=== PATIENT | male | born 1940 | race Caucasian/White ===

== ENCOUNTER → 2016-07-16 | Outpatient (CLI) | payer MEDICARE, OTHER ==
[~2016-07-16] MED LIST: ASPI1TAB69 PO; ASPI81 PO; ASPI81CH CHEW; CALC12502 PO; CIPR-9 PO; CO Q100C9; CYCL1TAB29 PO; ERYT.5%O OD; HYDR-3533 PO; HYDR10TA16 PO; MULT-65 PO; NAPR500T PO; OMEGCAP PO; PRED20 PO; TAB-TAB PO; TAMS5CAP PO; VIAG50TA PO; ZANT150T2 PO; ZOFR4TAB PO; ZOFR4TAB3 SL; ZOVI800T13 PO
[2016-07-16 12:51] LABS: APTT (PATIENT) 27.2 SEC (24.3-30.1); INTERNATIONAL NORMALIZED RATIO 0.9 RATIO; PROTHROMBIN TIME - PATIENT 9.7 SEC (9.8-11.6)
[2016-07-16 12:52] LABS: AUTOMATED NEUTROPHIL # 3.7 TH/MM3 (1.8-7.7); BASOPHIL % 0.6 % (0.0-2.0); EOSINOPHIL # 0.3 TH/MM3 (0-0.4); EOSINOPHIL % 6.3 % (0.0-4.0); HEMATOCRIT 42.3 % (39.0-51.0); HEMO FLAGS DIFF FINAL; LYMPH % 11.6 % (9.0-44.0); LYMPHOCYTE # 0.6 TH/MM3 (1.0-4.8); MEAN CELL VOLUME 92.3 FL (80.0-100.0); MEAN CORPUSCULAR HEMOGLOBIN 31.9 PG (27.0-34.0); MEAN CORPUSCULAR HGB CONC 34.5 % (32.0-36.0); MONO % 11.2 % (0.0-8.0); NEUT % 70.3 % (16.0-70.0); PLATELET COUNT 216 TH/MM3 (150-450); RED BLOOD COUNT 4.58 MIL/MM3 (4.50-5.90); RED CELL DISTRIBUTION WIDTH 13.1 % (11.6-17.2); WHITE BLOOD COUNT 5.2 TH/MM3 (4.0-11.0)
[2016-07-16 13:01] LABS: BACTERIA, URINE MOD /hpf; BLOOD, URINE NEG (NEG); COMMENT (UR) CULTURE INDICATED; CULTURE IF INDICATED CULTURE INDICATED; GLUCOSE,URINE NEG (NEG); KETONE, URINE NEG (NEG); MUCUS URINE FEW /lpf (OCC); NITRITE,URINE NEG (NEG); SQUAMOUS EPITHELIAL CELL URINE <1 /hpf (0-5); URINE COLOR YELLOW (YELLW/STRAW)
[2016-07-16 13:08] LABS: ALKALINE PHOSPHATASE 94 U/L (45-117); ALT (GPT) 19 U/L (12-78); ANION GAP 8 MEQ/L (5-15); AST (GOT) 13 U/L (15-37); BLOOD UREA NITROGEN 21 MG/DL (7-18); CHLORIDE 102 MEQ/L (98-107); GLOMERULAR FILTRATION RATE 77 ML/MIN (>89); GLUCOSE,FASTING 95 MG/DL (74-99); POTASSIUM 4.2 MEQ/L (3.5-5.1); SODIUM (NA) 140 MEQ/L (136-145); TOTAL BILIRUBIN ADULT 0.4 MG/DL (0.2-1.0)
--- NOTE | 2016-07-16 13:15 | RADRPT ---
EXAM DATE/TIME: 07/16/2016 12:22 [facility] COMPARISON: No previous studies available for comparison. INDICATIONS : Evaluate for pneumonia, pneumothora and communicable diseases. Pre-op back surgery MEDICAL HISTORY : None. SURGICAL HISTORY : None. ENCOUNTER: Initial ACUITY: 1 day PAIN SCORE: 0/10 LOCATION: chest FINDINGS: PA and lateral views of the chest demonstrate the lungs to be symmetrically aerated without evidence of mass, infiltrate or effusion. The cardiomediastinal contours are unremarkable. Osseous structure s are intact. CONCLUSION: No acute disease. Thad Miranda MD on July 16, 2016 at 13:14 Board Certified Radiologist. This report was verified electronically.
--- NOTE | 2016-07-17 23:41 | EKG ---
Date Performed: 07/16/2016 Time Performed: 11:42:04 PTAGE: 75 years EKG: Sinus rhythm PATTERN CONSISTENT WITH PULMONARY DISEASE LEFT ANTERIOR FASCICULAR BLOCK ABNORMAL ECG NO PREVIOUS TRACING DOCTOR: Martha Tate Interpretating Date/Time 07/17/2016 23:38:58
== END ==
LOC: CPRE 11:17
PROVIDERS: ATTEND Neurological Surgery
DX: Z01.812 Encounter for preprocedural laboratory examination (principal); Z79.01 Long term (current) use of anticoagulants; Z01.810 Encounter for preprocedural cardiovascular examination; Z01.811 Encounter for preprocedural respiratory examination; S32.000A Wedge compression fracture of unspecified lumbar vertebra, initial encounter for closed fracture; I44.4 Left anterior fascicular block; N39.0 Urinary tract infection, site not specified; B96.1 Klebsiella pneumoniae [K. pneumoniae] as the cause of diseases classified elsewhere; R94.31 Abnormal electrocardiogram [ECG] [EKG]
CPT/HCPCS: 36415; 71020; 80053; 81001; 85025; 85610; 85730; 87077; 87086; 87186; 93005

== ENCOUNTER → 2016-07-20 | Day surgery (SDC) | payer MEDICARE, OTHER ==
[~2016-07-20] VITALS: Ht 177.8 cm; Wt 85.0 kg
[~2016-07-20] MED LIST changes: -ASPI81 PO; +BUPIVACAINE/EPINEPHRINE 0.5% PF 30 ML VIAL ONE; -CO Q100C9; +DO NOT ADM ANY ANTICOAGULANT DRUGS XX PRN; -ERYT.5%O OD; -HYDR10TA16 PO; +INSULIN HUMAN REGULAR 1,000 UNITS/10 ML VIAL SQ PRN; +IOHEXOL 350 MG/ML 50 ML BTL (for RAD DIAG) ONE; +LACTATED RINGER'S 1000 ML IV SCH; +METOPROLOL TARTRATE 25 MG TAB PO PRN; +MIDAZOLAM HCL 2 MG/2 ML VIAL ONE; +NEOSTIGMINE 3 MG/3 ML SYR IV ONE; +ONDANSETRON HCL 4 MG/2 ML VIAL IV PUSH ONE; -PRED20 PO; +PROPOFOL 200 MG/20 ML AMP IV ONE; +SODIUM CHLOR 0.9% 1000 ML INJ 1,000 ML IV SCH; +SODIUM CHLORID 0.9% 500 ML IV SCH; -TAB-TAB PO; +VANCOMYCIN HCL 1000 MG ON-CALL/NS 250 ML IV SCH; -ZOVI800T13 PO
[2016-07-20 07:08] VITALS: BP 142/82; PULSE 85; RESP 16; TEMP 98; O2SAT 99
--- NOTE | 2016-07-20 09:31 | PD.OP ---
cc: Raudel Parsons MD Operative Report Date of Surgery: Jul 20, 2016 Preoperative Diagnosis: Intractable low back pain with L5 vertebral body compression fracture Postoperative Diagnosis: Same Procedure: Lumbar L5 kyphoplasty Anesthesia: Gen. endotracheal by Treva Martin Surgeon: Sundar Dobson M.D. Quarryman(s): None Operation and Findings: Following administration of a general endotracheal anesthesia patient was placed in the prone position on chest rolls and Pal table and all pressure points adequate padded. IV antibiotics were administered intravenously and the thoracolumbar area posteriorly prepped with a Betadine solution and painted and draped in the usual sterile fashion. Using AP and lateral arthroscopy guidance the stab incision sites were made at the L5 level overlying the pedicles bilaterally after infiltrating the skin was 0.5% Marcaine. The Jamshidi needles were then passed into the vertebral body to the pedicles on both sides and the hand-held drill trajectory created. The drills were then removed and then the balloons were passed into the vertebral body through both sides and dilated to create a cavity and restore vertebral body height. Subsequently the balloons were removed and the cavity packed with the bone cement 7 cc total. The guide was then removed and Steri-Strips applied at the puncture wounds along with a sterile dressing. He was then turned in spine position, extubated and taken to the recovery room. There were no intraoperative medications and all sponge and needle count was correct at the end the procedure. Estimated blood loss less than 10 cc. Sundar Dobson MD Jul 20, 2016 09:31
[2016-07-20 11:10] VITALS: BP 143/75; PULSE 65; RESP 16; TEMP 97.2; O2SAT 99
--- NOTE | 2016-07-20 12:51 | RADRPT ---
EXAM DATE/TIME: 07/20/2016 09:25 [facility] COMPARISON: No previous studies available for comparison. INDICATIONS : Post-op L5 kyphoplasty. MEDICAL HISTORY : None. SURGICAL HISTORY : None. ENCOUNTER: Initial ACUITY: 1 day PAIN SCORE: Non-responsive. LOCATION: Lumbar spine. FINDINGS: There is evidence of previous kyphoplasty at L5. No extravasation of cement is seen. CONCLUSION: 1. Postsurgical changes as above. Efrain Ding MD on July 20, 2016 at 12:49 Board Certified Radiologist. This report was verified electronically.
== END | disposition home or self-care (01) ==
LOC: HSDC 05:46
PROVIDERS: ATTEND Neurological Surgery
DX: S32.050A Wedge compression fracture of fifth lumbar vertebra, initial encounter for closed fracture (principal)
CPT/HCPCS: 01936; 22514; 72100; J2250; J2405; J2710; J3010; J3370; J7050; J7120; Q9967

== ENCOUNTER 2016-11-09 12:55 | Emergency (ER) | payer MEDICARE, OTHER ==
[~2016-11-09] VITALS: Ht 175.3 cm; Wt 84.1 kg
[~2016-11-09 12:55] MED LIST changes: -ASPI81CH CHEW; -BUPIVACAINE/EPINEPHRINE 0.5% PF 30 ML VIAL ONE; -CALC12502 PO; -DO NOT ADM ANY ANTICOAGULANT DRUGS XX PRN; -INSULIN HUMAN REGULAR 1,000 UNITS/10 ML VIAL SQ PRN; -IOHEXOL 350 MG/ML 50 ML BTL (for RAD DIAG) ONE; -LACTATED RINGER'S 1000 ML IV SCH; -METOPROLOL TARTRATE 25 MG TAB PO PRN; -MIDAZOLAM HCL 2 MG/2 ML VIAL ONE; -NEOSTIGMINE 3 MG/3 ML SYR IV ONE; -ONDANSETRON HCL 4 MG/2 ML VIAL IV PUSH ONE; -PROPOFOL 200 MG/20 ML AMP IV ONE; -SODIUM CHLOR 0.9% 1000 ML INJ 1,000 ML IV SCH; -SODIUM CHLORID 0.9% 500 ML IV SCH; -TAMS5CAP PO; -VANCOMYCIN HCL 1000 MG ON-CALL/NS 250 ML IV SCH; -ZOFR4TAB3 SL
[2016-11-09 12:57] VITALS: BP 156/89; PULSE 92; RESP 18; TEMP 98; O2SAT 98
[2016-11-09] MEDS ORDERED: SODIUM CHLOR 0.9% 1000 ML INJ 1,000 ML IV SCH (13:21)
[2016-11-09] MEDS ORDERED: ASPI81CH CHEW (13:23)
[2016-11-09] MEDS ORDERED: CALC12502 PO (13:23)
--- NOTE | 2016-11-09 13:23 | PD ---
HPI Chief Complaint: Flank/Kidney Pain Time Seen by Provider: 13:15 Travel History International Travel<30 days: No Contact w/Intl Traveler<30days: No Traveled to known affect area: No History of Present Illness HPI Patient is a 76-year-old male with a history of compression fracture L1 by an MRI performed in June of this year as well as a kyphoplasty of L5 in July of this year presents emergency Department with right flank pain and dysuria since last night. Patient states the pain was fairly intense last month and eased up and then came back this morning. Denies any fever denies any vomiting but has had some mild nausea. States she's never had symptoms like this before but his recent CAT scans for workup his back he did notice some nonobstructing kidney stones in his kidney. Denies any diarrhea blood in the stool or constipation. PFSH Past Medical History Hx Anticoagulant Therapy: Yes (ASA) Cancer: Yes (prostate, completed radiation 2016) Cardiovascular Problems: No Diabetes: No Diminished Hearing: No Endocrine: No Genitourinary: No Hepatitis: No Hiatal Hernia: No Immune Disorder: No Musculoskeletal: Yes (pain in back and l hip) Neurologic: No Psychiatric: No Reproductive: No Respiratory: No Immunizations Current: Yes Thyroid Disease: No Past Surgical History Abdominal Surgery: Yes (hernia repair) AICD: No Genitourinary Surgery: Yes (prostate) Joint Replacement: No Pacemaker: No Other Surgery: Yes (LEFT THUMB TENDON REPAIR) Social History Alcohol Use: Yes (OCCASIONAL) Tobacco Use: No Substance Use: No Allergies-Medications (Allergen,Severity, Reaction): Coded Allergies: No Known Allergies (Verified , 11/09/16) Reported Meds & Prescriptions Reported Meds & Active Scripts Active Flomax (Tamsulosin HCl) 0.4 Mg Cap 0.4 Mg PO HS Zofran Odt (Ondansetron Odt) 4 Mg Tab 4 Mg SL Q6HR PRN Lortab (Hydrocodone-Acetaminophen) 5-325 Mg Tab 1 Tab PO Q8HR PRN Reported Calcium Carbonate 1,250 Mg Tab 1,000 Mg PO BID 1,250 mg calcium carbonate (500 mg elemental calcium) Aspirin 81 Mg Chew 81 Mg CHEW EVERY OTHER DAY Zantac (Ranitidine HCl) 150 Mg Tab 150 Mg PO DAILY Multi-Vitamin Daily (Multiple Vitamin) 1 Tab Tab 1 Tab PO DAILY Viagra (Sildenafil Citrate) 50 Mg Tab 50 Mg PO DAILY PRN [place]-3 Fish Oil/Vitamin (Fish Oil-Cholecalciferol) 1,000-1,000 Mg Cap 1 Cap PO DAILY Review of Systems Except as stated in HPI: all other systems reviewed are Neg Physical Exam Narrative GENERAL: Well-developed well-nourished no apparent distress. SKIN: Focused skin assessment warm/dry. HEAD: Atraumatic. Normocephalic. EYES: Pupils equal and round. No scleral icterus. No injection or drainage. ENT: No nasal bleeding or discharge. Mucous membranes pink and moist. NECK: Trachea midline. No JVD. CARDIOVASCULAR: Regular rate and rhythm. No murmur appreciated. RESPIRATORY: No accessory muscle use. Clear to auscultation. Breath sounds equal bilaterally. GASTROINTESTINAL: Abdomen soft, non-tender, nondistended. Hepatic and splenic margins not palpable. Minimal CVA tenderness on the right side. MUSCULOSKELETAL: No obvious deformities. No clubbing. No cyanosis. No edema. NEUROLOGICAL: Awake and alert. No obvious cranial nerve deficits. Motor grossly within normal limits. Normal speech. PSYCHIATRIC: Appropriate mood and affect; insight and judgment normal. Data Data Last Documented VS Vital Signs Date Time Temp Pulse Resp B/P Pulse Ox O2 Delivery O2 Flow Rate FiO2 11/09/16 15:26 82 16 146/74 98 Room Air 11/09/16 12:57 98.0 Orders Urinalysis - C+S If Indicated (11/09/16 13:02) Basic Metabolic Panel (Bmp) (11/09/16 13:21) Complete Blood Count With Diff (11/09/16 13:21) Ct Abd/Pel W/O Iv Contrast (11/09/16 13:21) Iv Access Insert/Monitor (11/09/16 13:21) Ecg Monitoring (11/09/16 13:21) Oximetry (11/09/16 13:21) Sodium Chlor 0.9% 1000 Ml Inj (Ns 1000 M (11/09/16 13:21) Sodium Chloride 0.9% Flush (Ns Flush) (11/09/16 13:30) Ketorolac Inj (Toradol Inj) (11/09/16 13:30) Ct Lumb Spine W/O Contrast (11/09/16 ) Labs Laboratory Tests Test 11/09/16 11/09/16 13:00 13:20 Urine Collection Type CLEAN CATCH Urine Color YELLOW Urine Turbidity CLEAR Urine pH 7.0 Urine Specific [place] 1.015 Urine Protein NEG mg/dL Urine Glucose (UA) NEG mg/dL Urine Ketones NEG mg/dL Urine Occult Blood TRACE Urine Nitrite NEG Urine Bilirubin NEG Urine Leukocyte Esterase NEG Urine RBC 0-3 /hpf Urine Squamous Epithelial 0-5 /hpf Cells Urine Amorphous Sediment FEW Microscopic Urinalysis Comment CULT NOT INDICATED Urine Collection Time 1300 White Blood Count 7.2 TH/MM3 Red Blood Count 4.69 MIL/MM3 Hemoglobin 14.4 GM/DL Hematocrit 43.3 % Mean Corpuscular Volume 92.4 FL Mean Corpuscular Hemoglobin 30.6 PG Mean Corpuscular Hemoglobin 33.1 % Concent Red Cell Distribution Width 12.6 % Platelet Count 231 TH/MM3 Mean Platelet Volume 6.6 FL Neutrophils (%) (Auto) 80.2 % Lymphocytes (%) (Auto) 6.9 % Monocytes (%) (Auto) 11.4 % Eosinophils (%) (Auto) 1.0 % Basophils (%) (Auto) 0.5 % Neutrophils # (Auto) 5.8 TH/MM3 Lymphocytes # (Auto) 0.5 TH/MM3 Monocytes # (Auto) 0.8 TH/MM3 Eosinophils # (Auto) 0.1 TH/MM3 Basophils # (Auto) 0.0 TH/MM3 CBC Comment DIFF FINAL Differential Comment Sodium Level 138 MEQ/L Potassium Level 3.9 MEQ/L Chloride Level 104 MEQ/L Carbon Dioxide Level 26.5 MEQ/L Anion Gap 8 MEQ/L Blood Urea Nitrogen 22 MG/DL Creatinine 1.40 MG/DL Estimat Glomerular Filtration 50 ML/MIN Rate Random Glucose 105 MG/DL Calcium Level 9.0 MG/DL [facility] Medical Decision Making Medical Screen Exam Complete: Yes Emergency Medical Condition: Yes Differential Diagnosis Kidney stones, acute back injury, urinary tract infection, pyelonephritis. Narrative Course Patient was roomed in the emergency department, review of his records shows indeed he did have an MRI in June of this year showing a compression fracture of L1. He's had a kyphoplasty by Dr. Dobson in July of this year. There is no midline lumbar tenderness and really minimal CVA tenderness. Need to consider bony as well as kidney sources of his pain. To this and a noncontrast CT of his abdomen as well as his back was obtained: Last 24 hours Impressions Abdomen/Pelvis CT 11/09/16 1321 Signed Impressions: Service Date/Time: Wednesday, November 09, 2016 13:36 - CONCLUSION: Small distal right ureteral stones with mild hydronephrosis and hydroureter José Antonio Khan MD Lumbar Spine CT 11/09/16 0000 Signed Impressions: Service Date/Time: Wednesday, November 09, 2016 13:36 - CONCLUSION: 1. There is a compression fracture of L1 with associated T12-L1 kyphosis. This fracture is of uncertain chronicity but suspected to be chronic given the appearance. No acute fracture line is visualized. 2. Chronic compression fracture the superior endplate of L5 has been treated with kyphoplasty. 3. There is a moderate severity multilevel degenerative disc disease. There are multiple areas of neural foraminal narrowing and canal stenosis at L4-L5. José Antonio Bolton MD Patient does have minimal elevation of his creatinine to 1.4, last was 1.0 but has been variable in the past. Urine is noninfected white blood cell count normal, he was given Toradol in the emergency department is feeling better. Discussed with him needs follow-up with urologist within a week and he is agreeable. He has urologist and Dr. Ansari has followed him for a prostatectomy in the past. After discussion of risks benefits competitions and alternatives of Flomax therapy he is agreeable for a trial. Discussed symptomatic management and return to ED criteria. He states that he has a supply of hydrocodone at home which he takes very sparingly and has enough to help them at home. Diagnosis Primary Impression: Kidney stone Med/Other Pt SpecificInfo: Prescription(s) given Scripts Tamsulosin (Flomax)0.4 Mg Cap0.4 Mg PO HS #30 CAP Ref 0 Prov:Andrew Dunn MD 11/09/16 Ondansetron Odt (Zofran Odt)4 Mg Tab4 Mg SL Q6HR PRN (Nausea/Vomiting) #30 TAB Ref 0 Prov:Andrew Dunn MD 11/09/16 Disposition: 01 DISCHARGE HOME Condition: Stable Andrew Dunn MD Nov 09, 2016 13:23
[2016-11-09 13:25] LABS: BLOOD, URINE TRACE (NEG); GLUCOSE,URINE NEG (NEG); KETONE, URINE NEG (NEG); NITRITE,URINE NEG (NEG)
[2016-11-09] MEDS ORDERED: SODIUM CHLORIDE 0.9% FLUSH 10 ML FLUSH IV FLUSH PRN (13:30)
[2016-11-09] MEDS ORDERED: KETOROLAC TROMETHAMINE 30 MG/ML (IVP) VIAL IVP ONE (13:30)
[2016-11-09 13:40] VITALS: BP 146/78; PULSE 87; RESP 18; O2SAT 97
[2016-11-09 13:40] LABS: METHOD OF COLLECTION CLEAN CATCH
[2016-11-09 13:40] LABS: AUTOMATED NEUTROPHIL # 5.8 TH/MM3 (1.8-7.7); BASOPHIL % 0.5 % (0.0-2.0); EOSINOPHIL # 0.1 TH/MM3 (0-0.4); HEMATOCRIT 43.3 % (39.0-51.0); HEMO FLAGS DIFF FINAL; LYMPH % 6.9 % (9.0-44.0); LYMPHOCYTE # 0.5 TH/MM3 (1.0-4.8); MEAN CELL VOLUME 92.4 FL (80.0-100.0); MEAN CORPUSCULAR HEMOGLOBIN 30.6 PG (27.0-34.0); MEAN CORPUSCULAR HGB CONC 33.1 % (32.0-36.0); MONO % 11.4 % (0.0-8.0); NEUT % 80.2 % (16.0-70.0); PLATELET COUNT 231 TH/MM3 (150-450); RED BLOOD COUNT 4.69 MIL/MM3 (4.50-5.90); RED CELL DISTRIBUTION WIDTH 12.6 % (11.6-17.2); WHITE BLOOD COUNT 7.2 TH/MM3 (4.0-11.0)
[2016-11-09 13:41] LABS: URINE COLOR YELLOW (YELLW/STRAW)
[2016-11-09 13:42] LABS: COMMENT (UR) CULT NOT INDICATED; CULTURE IF INDICATED CULT NOT INDICATED; RBC, URINE 0-3 /hpf (0-3); SQUAMOUS EPITHELIAL CELL URINE 0-5 /hpf (0-5)
[2016-11-09 13:49] LABS: POTASSIUM 3.9 MEQ/L (3.5-5.1)
[2016-11-09 13:51] LABS: BICARBONATE 26.5 MEQ/L (21.0-32.0)
--- NOTE | 2016-11-09 14:06 | RADRPT ---
EXAM DATE/TIME: 11/09/2016 13:36 [facility] COMPARISON: No previous studies available for comparison. INDICATIONS : Right flank pain since yesterday. Evaluate for renal stone. Painful urination. ORAL CONTRAST: No oral contrast ingested. RADIATION DOSE: 13.00 CTDIvol (mGy) MEDICAL HISTORY : Carcinoma, prostate. Anticoagulant therapy. SURGICAL HISTORY : Hernia repair. Orthopedic surgery. ENCOUNTER: Initial ACUITY: 2 days PAIN SCALE: 8/10 LOCATION: Right flank TECHNIQUE: Volumetric scanning of the abdomen and pelvis was performed. Using automated exposure control and ad justment of the mA and/or kV according to patient size, radiation dose was kept as low as reasonably achievable to obtain optimal diagnostic quality images. DICOM format image data is available electro nically for review and comparison. FINDINGS: LOWER LUNGS: The visualized lower lungs are clear. LIVER: Visualized portions are grossly unremarkable. SPLEEN: Visualized portions grossly unremarkable. PANCREAS: Within normal limits. KIDNEYS: Mild right hydronephrosis and hydroureter down to the level of repair of stones in the distal right u reter, each measuring about 3 mm in size just proximal to the ureterovesical junction. Miniscule nono bstructing stone in the medial upper pole collecting system of the right kidney. Tiny upper and mid p ole stones in addition to couple small lateral lower pole stone is on the left side. Left renal parap elvic cysts without definite hydronephrosis or hydroureter. ADRENAL GLANDS: Within normal limits. VASCULAR: There is no aortic aneurysm. BOWEL/MESENTERY: The stomach, small bowel, and colon demonstrate no acute abnormality. There is no free intraperitone al air or fluid. ABDOMINAL WALL: Within normal limits. RETROPERITONEUM: There is no lymphadenopathy. BLADDER: No wall thickening or mass. REPRODUCTIVE: Within normal limits. INGUINAL: Previous right inguinal mesh hernia repair. No mass or adenopathy. MUSCULOSKELETAL: Previous lumbar kyphoplasty. Degenerative changes.. CONCLUSION: Small distal right ureteral stones with mild hydronephrosis and hydroureter José Antonio Khan MD on November 09, 2016 at 13:59 Board Certified Radiologist. This report was verified electronically.
[2016-11-09 14:07] VITALS: BP 167/84; PULSE 82; RESP 16; O2SAT 98
--- NOTE | 2016-11-09 14:38 | RADRPT ---
EXAM DATE/TIME: 11/09/2016 13:36 [facility] COMPARISON: SPINE LUMBAR LTD (AP & LAT), July 20, 2016, 9:25. INDICATIONS : Right flank pain since yesterday. RADIATION DOSE: ; Reconstructed from previous dataset MEDICAL HISTORY : Carcinoma, prostate. Anticoagulant therapy. SURGICAL HISTORY : Hernia repair. Orthopedic surgery. ENCOUNTER: Initial ACUITY: 2 days PAIN SCALE: 8/10 LOCATION: spine TECHNIQUE: Volumetric scanning of the lumbar spine was performed. Multiplanar reconstructions in the sagittal, coronal and oblique axial planes were performed. Using automated exposure control and adjustment of the mA and/or kV according to patient size, radiation dose was kept as low as reasonably achievable t o obtain optimal diagnostic quality images. DICOM format image data is available electronically for review and comparison. FINDINGS: VERTEBRAE: There is a compression fracture of the L1 vertebral body that is of uncertain chronicity. However, no acute fracture line is clearly visualized. There is approximately 50% height loss centrally. There i s a superior endplate compression fracture of L5 that has been previously treated with kyphoplasty. A small amount of cement material is present within the L4-L5 disc space. There is mild height loss at the inferior plate of L4. Endplate osteophytes are present. No acute fracture is seen. ALIGNMENT: There is no anterolisthesis or retrolisthesis. There is kyphotic hyperangulation at the T12-L1 second oliver to the L1 compression fracture. T12-L1: There is posterior osteophytic ridging. No disc herniation, canal stenosis, or neural foraminal steno sis is identified. L1-L2: There is diffuse posterior osteophytic ridging with facet hypertrophy. No definite canal stenosis is identified. There is at least mild neural foraminal narrowing bilaterally. L2-L3: There is a diffuse disc bulge with facet hypertrophy. There may be mild narrowing of the spinal canal but the canal is not well-visualized. There is mild to moderate neural foraminal stenosis bilaterall y. L3-L4: There is a mild diffuse disc bulge with facet hypertrophy. No canal stenosis is present. There is mil d neural foraminal narrowing bilaterally. L4-L5: There is diffuse posterior osteophytic ridging with moderate facet hypertrophy. There is at least mil d spinal canal stenosis present and there is moderate neural foraminal narrowing bilaterally, left gr eater than right. L5-S1: There is mild facet hypertrophy. No disc herniation or canal stenosis is identified. There is moderat e neural foraminal narrowing bilaterally. Please refer to abdomen and pelvis CT for description of the surrounding findings. CONCLUSION: 1. There is a compression fracture of L1 with associated T12-L1 kyphosis. This fracture is of uncerta in chronicity but suspected to be chronic given the appearance. No acute fracture line is visualized. 2. Chronic compression fracture the superior endplate of L5 has been treated with kyphoplasty. 3. There is a moderate severity multilevel degenerative disc disease. There are multiple areas of dara ral foraminal narrowing and canal stenosis at L4-L5. José Antonio Bolton MD on November 09, 2016 at 14:29 Board Certified Radiologist. This report was verified electronically.
[2016-11-09] MEDS ORDERED: TAMS5CAP PO (15:14)
[2016-11-09] MEDS ORDERED: ZOFR4TAB3 SL (15:14)
[2016-11-09 15:26] VITALS: BP 146/74; PULSE 82; RESP 16; O2SAT 98
== END 2016-11-09 15:28 | disposition home or self-care (01) ==
LOC: PHED 12:55
DX: N20.0 Calculus of kidney (principal)
CPT/HCPCS: 72131; 74176; 80048; 81001; 85025; 96361; 96374; 99285; J1885; J7030

== ENCOUNTER 2017-07-15 08:28 | Emergency (ER) | payer MEDICARE, OTHER ==
[~2017-07-15] VITALS: Ht 177.8 cm; Wt 84.6 kg
[~2017-07-15 08:28] MED LIST changes: +ASPI-516 CHEW; -ASPI1TAB69 PO; +CALC12502 PO; -CIPR-9 PO; -CYCL1TAB29 PO; -NAPR500T PO; +TAMS5CAP PO; -ZOFR4TAB PO; +ZOFR4TAB3 SL
[2017-07-15 08:30] VITALS: BP 158/82; PULSE 102; RESP 16; TEMP 98.6; O2SAT 97
[2017-07-15] MEDS ORDERED: AUGM875T3 PO (08:43)
[2017-07-15] MEDS ORDERED: VENTAER INH ×2 (08:49→09:55)
--- NOTE | 2017-07-15 08:51 | PD ---
HPI Chief Complaint: Respiratory Symptoms Time Seen by Provider: 08:36 Travel History International Travel<30 days: No Contact w/Intl Traveler<30days: No Traveled to known affect area: No History of Present Illness HPI This 76-year-old male is complaining of persistent cough. He started getting sick earlier in the week. On Wednesday and Wednesday he was having coughing he had a fever of 102. He went to an urgent care center and was put on Augmentin and a Medrol Dosepak. He has 2 days left of his prescriptions. His fever has resolved but he has persistent cough. He feels like he has phlegm which is unable to get up. He has no history of asthma. He has never smoked. He has no history of lung disease. He has had a compression fracture of his lumbar spine has been treated for prostate cancer. He has not been short of breath PFSH Past Medical History Hx Anticoagulant Therapy: Yes (asa 81mg) Cancer: Yes (prostate, completed radiation 2016) Cardiovascular Problems: No Diabetes: No Diminished Hearing: No Endocrine: No Gastrointestinal Disorders: Yes (ileus after a prior surgery) Genitourinary: No Hepatitis: No Hiatal Hernia: No Hypertension: No Immune Disorder: No Musculoskeletal: Yes (pain in back and l hip) Neurologic: No Psychiatric: No Reproductive: No Respiratory: No Immunizations Current: Yes Radiation Therapy: Yes Thyroid Disease: No Influenza Vaccination: No Past Surgical History Abdominal Surgery: Yes (hernia repair) AICD: No Genitourinary Surgery: Yes (prostate) Joint Replacement: No Pacemaker: No Other Surgery: Yes (LEFT THUMB TENDON REPAIR) Social History Alcohol Use: Yes (OCCASIONAL) Tobacco Use: No Substance Use: No Allergies-Medications (Allergen,Severity, Reaction): Coded Allergies: No Known Allergies (Verified Adverse Reaction, Unknown, 07/15/17) Reported Meds & Prescriptions Reported Meds & Active Scripts Active Reported Ventolin Hfa 18 GM Inh (Albuterol Sulfate) 90 Mcg/Act Aer 2 Puff INH Q4-6H PRN Augmentin (Amoxicillin-Clavulanate) 875-125 Mg Tab 1 Tab PO BID Calcium Carbonate 1,250 Mg Tab 1,000 Mg PO BID 1,250 mg calcium carbonate (500 mg elemental calcium) Aspirin 81 Mg Chew 81 Mg CHEW EVERY OTHER DAY Zantac (Ranitidine HCl) 150 Mg Tab 150 Mg PO DAILY Multi-Vitamin Daily (Multiple Vitamin) 1 Tab Tab 1 Tab PO DAILY Viagra (Sildenafil Citrate) 50 Mg Tab 50 Mg PO DAILY PRN Review of Systems General / Constitutional: Positive: Fever, No: Chills Eyes: No: Diploplia, Blurred Vision HENT: No: Headaches, Vertigo Cardiovascular: Positive: Chest Pain or Discomfort (With cough), No: Palpitations Respiratory: Positive: Cough, Wheezing Gastrointestinal: No: Nausea, Vomiting Genitourinary: No: Urgency, Frequency Musculoskeletal: No: Myalgias Skin: No Rash Neurologic: No: Weakness, Dizziness Psychiatric: No: Anxiety, Depression Endocrine: No: Cold Intolerance Hematologic/Lymphatic: No: Easy Bruising Physical Exam Narrative GENERAL: Male SKIN: Focused skin assessment warm/dry. HEAD: Atraumatic. Normocephalic. EYES: Pupils equal and round. No scleral icterus. No injection or drainage. ENT: No nasal bleeding or discharge. Mucous membranes pink and moist. NECK: Trachea midline. No JVD. CARDIOVASCULAR: Regular rate and rhythm. No murmur appreciated. RESPIRATORY: No accessory muscle use. There is an occasional expiratory wheeze that clears with cough. Breath sounds equal bilaterally. GASTROINTESTINAL: Abdomen soft, non-tender, nondistended. Hepatic and splenic margins not palpable. MUSCULOSKELETAL: No obvious deformities. No clubbing. No cyanosis. No edema. NEUROLOGICAL: Awake and alert. No obvious cranial nerve deficits. Motor grossly within normal limits. Normal speech. PSYCHIATRIC: Appropriate mood and affect; insight and judgment normal. Data Data Last Documented VS Vital Signs Date Time Temp Pulse Resp B/P (MAP) Pulse Ox O2 Delivery O2 Flow Rate FiO2 07/15/17 08:30 98.6 102 16 158/82 (107) 97 Orders Orders Chest, Pa & Lat (07/15/17 08:46) Albuterol-Ipratropium Neb (Duoneb Neb) (07/15/17 09:00) MDM Medical Decision Making Medical Screen Exam Complete: Yes Emergency Medical Condition: Yes Medical Record Reviewed: Yes Differential Diagnosis Differential includes pneumonia, bronchitis, space-occupying lesion Narrative Course Chest x-ray is negative. He was given a nebulizer treatment which seemed to help a little bit. Impression is bronchitis. I have encouraged him to drink lots of fluids. I will prescribe albuterol as that seems to help him Diagnosis Primary Impression: Acute bronchitis Scripts Albuterol 18 GM Inh (Ventolin Hfa 18 GM Inh) 90 Mcg/Act Aer 2 PUFF INH Q4-6H Y for SHORTNESS OF BREATH, #1 INHALER 0 Refills Prov: Luis Aranda MD 07/15/17 Disposition: 01 DISCHARGE HOME Condition: Stable Luis Aranda MD Jul 15, 2017 08:51
[2017-07-15] MEDS ORDERED: RESP: ALBUTEROL 2.5 MG/IPRATROPIUM 0.5 MG NEB (SCH) NEB ONE (09:00)
--- NOTE | 2017-07-15 09:26 | RADRPT ---
EXAM DATE/TIME: 07/15/2017 09:15 [facility] COMPARISON: No previous studies available for comparison. INDICATIONS : Cough, congestion, fever x 6 days. MEDICAL HISTORY : Carcinoma, prostatic. Ileus. Radiation therapy. SURGICAL HISTORY : Kyphoplasty. Knee arthroscopy. Hernia repair. ENCOUNTER: Initial ACUITY: 4 - 6 days PAIN SCORE: 4/10 LOCATION: chest FINDINGS: PA and lateral views of the chest demonstrate the lungs to be symmetrically aerated without evidence of mass, infiltrate or effusion. The cardiomediastinal contours are unremarkable. Osseous structure s are intact. Chronic wedging of the upper lumbar spine CONCLUSION: Normal examination. Ritchie Harman MD on July 15, 2017 at 9:24 Board Certified Radiologist. This report was verified electronically.
== END 2017-07-15 10:04 | disposition home or self-care (01) ==
LOC: PHED 08:28
DX: J20.9 Acute bronchitis, unspecified (principal); Z85.46 Personal history of malignant neoplasm of prostate; Z79.82 Long term (current) use of aspirin
CPT/HCPCS: 71046; 94664; 99283